=== PATIENT | male | born 1985 ===

== ENCOUNTER 2020-09-08 16:34 | Emergency (ER) | payer SELFPAY ==
[~2020-09-08] VITALS: Ht 162.6 cm; Wt 59.1 kg
[2020-09-08 16:39] VITALS: BP 150/78
== END 2020-09-08 18:20 | disposition left against medical advice (07) ==
LOC: EMS 16:34
DX: Z04.6 Encounter for general psychiatric examination, requested by authority (principal); Z53.21 Procedure and treatment not carried out due to patient leaving prior to being seen by health care provider